=== PATIENT | male | born 1980 | race Caucasian/White ===

== ENCOUNTER 2016-06-05 18:06 | Emergency (ER) | payer OTHER ==
[2016-06-05] MEDS ORDERED: Sodium Chloride 0.9% 1,000 ML ONE (18:17)
[2016-06-05] MEDS ORDERED: MORPHINE SULFATE 4 MG/1 ML ONE ×2 (18:17)
[2016-06-05] MEDS ORDERED: ONDANSETRON 4 MG/2 ML VIAL ONE (18:17)
--- NOTE | 2016-06-05 18:31 | PDOC ---
Lower Extremity Injury HPI - General Chief Complaint: Lower Extremity Problem/Injury Stated Complaint: RIGHT KNEE INJURY Date Seen by Provider: 06/05/16 Time Seen by Provider: 18:25 Source: POSITIVE: Patient Exam Limitations: POSITIVE: No limitations Nurse's Notes Reviewed & Considered: Yes - History of Present Illness Initial Comments: Patient comes in today with chief complaint of right knee pain. Patient was at work at approximately 1700 hrs. when a 5 inch 15 foot long steel pipe fell striking him on the anterior proximal tibia driving him backwards to the ground. He was pinned under the pipe for a couple of minutes before it was able to be lifted free. He arrives sitting with his knee bent and being held in his hand he states he feels crepitus in his knee. He has good capillary refill distally denies any other injuries no headache, no nausea vomiting diarrhea, no chest pain shortness breath, no fever chills or sweats, no hematuria or dysuria. Have you received a tetanus shot in the past 10 years?: Unknown Body Location Affected: REPORTS: Lower Extremity (R) Timing: REPORTS: Abrupt Duration: 1 hour Severity: Severe Quality: REPORTS: "Pain", Sharpness, Stabbing, Throbbing Location at Time of Onset: REPORTS: Work Context of Injury: REPORTS: Direct Blow Location of Injury: REPORTS: Knee (R), Other Modifying Factors: improves with: Movement, Nothing Relieves Associated Symptoms: REPORTS: Unable to Bear Weight Any Prior Injuries Related to Current Complaint?: No - Patient Home Medications Home Medications: Home Medications NK [No Home Medications Reported] 06/05/16 - Patient Allergies Allergies/Adverse Reactions: Allergies Allergy/AdvReac Type Severity Reaction Status Date / Time No Known Allergies Allergy Verified 06/05/16 18:31 ROS - Limitations ROS Limitations: No Limitations Constitution: REPORTS: Denies Symptoms Cardiovascular: REPORTS: Denies Cardiac Symptoms Respiratory: REPORTS: Denies Resp Symptoms Neurological: REPORTS: Denies Neuro Symptoms Gastrointestinal: REPORTS: Denies GI Symptoms Endocrine: REPORTS: Denies Symptoms Musculoskeletal: REPORTS: Joint Pain (Right knee), Lower Extremity Swelling ( Swelling of the right knee with bruising, abrasion on his proximal right anterior tibial region.) Genitourinary: REPORTS: Denies Symptoms Eyes: REPORTS: Denies Symptoms ENT: REPORTS: Denies Symptoms Skin: REPORTS: Denies Skin Symptoms Lympathic: REPORTS: Denies Lympathic Symptoms Immunologic: POSITIVE: Denies Symptoms Lower Ext Complaint Exam - General Appearance General Appearance: POSITIVE: Alert, Cooperative, Moderate Distress - Extremities Lower Extremity: POSITIVE: Normal Color, Normal Temperature, Skin Intact, Soft Tissue Tenderness, Bony Tenderness, Swelling, Ecchymosis, Deformity, Limited ROM Lower Extremity Ligament: POSITIVE: Pain on Anterior Drawer, Pain on Posterior Drawer, Laxity on Anterior Drawer, Laxity w/Posterior Drawer, Pain on Medial Stress, Pain on Lateral Stress Gait: POSITIVE: Unable to Bear Weight Neurovascular/Tendon: POSITIVE: Sensation Normal, No Vascular Compromise Skin: POSITIVE: Warm, Dry, Ecchymosis, Abrasion - HEENT HEENT: POSITIVE: Head Inspection Nml, Eyes Inspection Nml, Ears Inspection Nml, Nose Inspection Nml, PERRL, EOMI - Neck / Back Neck/Back: POSITIVE: Normal Inspection, Non-Tender, Painless ROM - Respiratory / CVS Respiratory / CVS: POSITIVE: Chest Non Tender, No Ecchymosis, Breath Sounds Normal, No Respiratory Distress, Heart Sounds Normal, Regular Rate/Rhythm Peripheral Pulses: Dorsalis-pedis (R): 3+, Dorsalis-pedis (L): 3+ - Abdomen Abdomen: Soft: (All Quadrants), Normal Bowel Sounds: (All Quadrants), Denies Tenderness: (All Quadrants) Procedures - Laceration/Wound Repair Did patient have a laceration repair: No Lower Ext Complaint Progress - Results Reviewed by me Xrays/CTs/US Reviewed by me: Yes Discussed with Radiologist: Yes Lab Results Reviewed: Yes Lab Results:: Laboratory Results 06/05/16 Range/Units 18:15 WBC 10.70 (4.8-10.8) 10^3/uL RBC 4.77 (4.70-6.10) 10^6/uL Hgb 15.3 (14.0-18.0) g/dL Hct 41.7 L (42.0-52.0) % MCV 87.4 (80-90) FL MCH 32.1 H (27-31) PG MCHC 36.7 (33-37) g/dL RDW Std Deviation 40.7 (39-50) fL RDW Coeff of Leah 13.0 (11.5-14.5) % Plt Count 288 (140-350) 10*3/uL MPV 9.3 (7.4-12.2) FL Neutrophils % (Manual) 72 (50-80) % Band Neutrophils % 2 (0-10) % Lymphocytes % (Manual) 24 (10-50) % Monocytes % (Manual) 1 (0-12) % Eosinophils % (Manual) 1 (0-8) % Basophils % (Manual) 0 (0-1) % Metamyelocytes % Not Reportable Myelocytes % Not Reportable Promyelocytes % Not Reportable Blast Cells Not Reportable WBC Morphology Comment Normal morphology (NORM) Plt Morphology Comment Normal morphology (NORM) RBC Morph Comment Normal morphology (NORM) PT 11.4 (9.7-11.4) secs INR 1.10 (0.00-5.90) N/A Sodium 137 (135-145) meq/L Potassium 3.1 L (3.8-5.2) meq/L Chloride 100 (98-112) meq/L Carbon Dioxide 24 (23-33) meq/L Anion Gap 13 (5-20) BUN 26 H (7-22) mg/dL Creatinine 1.1 (0.70-1.50) mg/dL Estimated GFR > 60 (>60 ml/min/1.73m(2)) BUN/Creatinine Ratio 23.63 H (6-20) Glucose 80 (78-110) mg/dL Calculated Osmolality 287.0 (267-292) mOsm/kg Calcium 9.3 (8.7-10.7) mg/dL Total Bilirubin 1.2 (0.3-1.2) mg/dL AST 59 H (21-57) IU/L ALT 74 H (21-72) IU/L Alkaline Phosphatase 69 (38-126) IU/L Total Protein 7.2 (6.1-8.0) g/dL Albumin 4.7 (3.5-4.8) g/dL Globulin 2.5 (2.50-4.10) g/dL Albumin/Globulin Ratio 1.80 (1.3-2.0) mg/g - Patient's Progress Re-Examine Time:: 20:40 Status: POSITIVE: Improved MDM / ED Course: Patient was examined, an IV started, blood drawn and sent to the lab for studies , radiographic examinations obtained. She received IV morphine sulfate, ketamine, Zofran, Valium, and normal saline. His pain significantly improved and I was able to straighten his leg. He was then taken to the radiological suite for studies. CT scan was obtained of his knee which showed a tibial plateau fracture on the posterior medial portion. There is minimal displacement present. Next I was able to contact Dr. Melvin Sanchez with [facility] our transition advisor criminal intelligence specialist, who is recommending knee immobilizer, crutches, pain medication and follow-up with orthopedics. Assessment: Traumatic right tibial plateau fracture. Plan: Knee immobilizer, crutches, [place], follow-up with orthopedics tomorrow. - Consult Consult (If Yes, Name of Consulting MD & Time Called): Yes (Dr. Melvin Sanchez) Consulting MD will see pt:: POSITIVE: In Office Counseled: POSITIVE: Patient, RE: Lab Results, RE: Radiology Results, RE: DX, RE : Need for F/U Patient Care Time - Estimated PCT Patient Care Time (In Minutes): 45 Vital Signs - VS Reviewed Vital Signs Reviewed: Yes Discharge Clinical Impression: Tibial plateau fracture, right Discharge Disposition: Discharged to Home Condition: Stable Patient Instructions Given at Discharge: Leg Fracture (ED)
[2016-06-05] MEDS ORDERED: KETAMINE 100 MG/1 ML - 5 ML IV ONE (18:34)
[2016-06-05] MEDS ORDERED: ONDANSETRON 4 MG/2 ML VIAL IVP ONE (18:34)
[2016-06-05] MEDS ORDERED: DIPH,PERTUSS,TET(ADACEL) VAC/PF 0.5 ML (Tdap) IM ONE (18:34)
[2016-06-05] MEDS ORDERED: MORPHINE SULFATE 4 MG/1 ML IVP ONE (18:34)
[2016-06-05] MEDS ORDERED: Sodium Chloride 0.9% 1,000 ML PRIMARY IV ONE (18:34)
[2016-06-05 18:42] LABS: HEMATOCRIT 41.7 % (42.0-52.0); HEMOGLOBIN 15.3 g/dL (14.0-18.0); MEAN CORPUSCULAR HEMOGLOBIN 32.1 PG (27-31); MEAN CORPUSCULAR HGB CONC 36.7 g/dL (33-37); MEAN CORPUSCULAR VOLUME 87.4 FL (80-90); MEAN PLATELET VOLUME 9.3 FL (7.4-12.2); RED BLOOD COUNT 4.77 10^6/uL (4.70-6.10)
[2016-06-05 18:48] LABS: BLOOD UREA NITROGEN 26 mg/dL (7-22); BUN/CREATININE RATIO 23.63 (6-20); CALCIUM 9.3 mg/dL (8.7-10.7); EST GLOMERULAR FILTRATION > 60 (>60 ml/min/1.73m(2)); SERUM ALBUMIN 4.7 g/dL (3.5-4.8)
[2016-06-05 18:57] LABS: PLATELET MORPHOLOGY COMMENT NORMAL MORPHOLOGY (NORM); RBC MORPHOLOGY COMMENT NORMAL MORPHOLOGY (NORM); WBC MORPHOLOGY COMMENT NORMAL MORPHOLOGY (NORM)
[2016-06-05 18:58] LABS: BAND NEUTROPHILS % 2 % (0-10); BASOPHILS % (MANUAL) 0 % (0-1); EOSINOPHILS % (MANUAL) 1 % (0-8); LYMPHOCYTES % (MANUAL) 24 % (10-50); MONOCYTES % (MANUAL) 1 % (0-12); NEUTROPHILS % (MANUAL) 72 % (50-80)
[2016-06-05] MEDS ORDERED: HYDROcodone-APAP 5 MG -325 MG TABLET PO ONE (20:51)
[2016-06-05] MEDS ORDERED: HYDROcodone-APAP 5 MG -325 MG TABLET PO SCH (21:00)
[2016-06-06 06:39] VITALS: RESP 16; TEMP 99.1
== END 2016-06-05 21:25 | disposition home or self-care (01) ==
LOC: ER 18:06
DX: S82.141A Displaced bicondylar fracture of right tibia, initial encounter for closed fracture (principal); S80.01XA Contusion of right knee, initial encounter; S80.211A Abrasion, right knee, initial encounter; W20.8XXA Other cause of strike by thrown, projected or falling object, initial encounter; Y99.0 Civilian activity done for income or pay
CPT/HCPCS: 73700; 80053; 85007; 85610; 90471; 96361; 96374; 96375; 99282; 99283; J2270; J2405; J7030

== ENCOUNTER 2016-06-15 05:44 | Day surgery (SDC) | payer OTHER ==
[2016-06-15] MEDS ORDERED: ceFAZolin Inj 2gm (Premix) 50 ML IV ONE (05:59)
[2016-06-15] MEDS ORDERED: LIDOCAINE W/ SODIUM BICARB 0.5 ML SYR ONE (05:59)
[2016-06-15] MEDS ORDERED: Lactated Ringers 1,000 ML PRIMARY IV ONE (06:00)
[2016-06-15] MEDS ORDERED: MIDAZOLAM 5 MG/1 ML ONE (06:33)
[2016-06-15] MEDS ORDERED: BUPIVACAINE 0.5% W/EPI MPF -30 ML VIAL IV ONE (06:34)
[2016-06-15] MEDS ORDERED: DEXAMETHASONE PF 10 MG/1 ML VIAL ONE (06:34)
[2016-06-15] MEDS ORDERED: fentaNYL Inj 250 MCG/5 ML VIAL ONE (06:34)
[2016-06-15] MEDS ORDERED: MEPIVACAINE HCL/PF 20 MG/1 ML IV ONE (06:47)
[2016-06-15] MEDS ORDERED: DEXAMETHASONE SOD PHOSPHATE 4 MG/1 ML VIAL ONE (06:48)
[2016-06-15] MEDS ORDERED: KETAMINE 100 MG/1 ML - 5 ML ONE (08:30)
[2016-06-15] MEDS ORDERED: Lactated Ringers 2,000 ML PRIMARY IV ONE (08:37)
[2016-06-15] MEDS ORDERED: ENALAPRILAT DIHYDRATE 1.25 MG/1 ML VIAL ONE (08:46)
[2016-06-15] MEDS ORDERED: NORMAL SALINE 10 ML SYRINGE FLUSH IVP PRN ×2 (08:49→10:08)
[2016-06-15] MEDS ORDERED: Ondansetron ODT Tab 8 MG TAB PO PRN (08:49)
[2016-06-15] MEDS ORDERED: fentaNYL Inj 100 MCG/2 ML VIAL IVP PRN (08:49)
[2016-06-15] MEDS ORDERED: ONDANSETRON 4 MG/2 ML VIAL IVP PRN ×2 (08:49→10:08)
[2016-06-15] MEDS ORDERED: ATROPINE SULFATE 0.4 MG/1 ML VIAL IVP PRN (08:49)
--- NOTE | 2016-06-15 08:55 | CRNA.PROCE ---
Nerve Block Documentation - - Safety Measures: Time Out Taken, Site Verified - - Type of Nerve Block Used: Right Femoral Nerve Block (NOT FEMORAL NERVE BLOCK--- ADUCTOR CANAL BLOCK under ultrasound guidance) Position for Nerve Block: Supine Moniters Used During Block: EKG, SPO2, NIBP Oxygen Sumpplented: Yes Sedation Used - Enter Amount in Comment Field: Midazolam (mg): Yes (2), Fentanyl (mcg): Yes (100) Skin Prep Used: ChloroPrep (twice) Draped: No Technique: Ultrasound Nerve Block Needle Used: [employer] 50 mm Stimulation Hz: 1 Stimulation Staring mA: 1 Stimulation Ending mA: 0.5 Local Anesthetic - Enter Amt in Comment Field: 0.5 % Bupivicaine with Epinephrine 1:200,000 (mL): Yes (10 ml in 3 ml incrememnts), 2 % Mepivacaine (mL ): Yes (ml increments) Additives to Nerve Blocks: Dexamethasone (mL): Yes (10 mg)
[2016-06-15] MEDS ORDERED: Lactated Ringers 1,000 ML PRIMARY IV SCH (09:00)
[2016-06-15] MEDS ORDERED: HYDROmorphone 2 MG/1 ML ONE ×2 (09:08→10:31)
[2016-06-15] MEDS ORDERED: oxyCODONE-ACETAMINOPHEN 5-325 TAB PO PRN (10:08)
[2016-06-15] MEDS: HYDROmorphone 2 MG/1 ML IVP PRN ×3 (10:30→10:48)
[2016-06-15] MEDS ORDERED: KETOROLAC 30 MG/1 ML VIAL IVP ONE (10:59)
[2016-06-15] MEDS ORDERED: KETOROLAC 30 MG/1 ML VIAL ONE (11:02)
[2016-06-15] MEDS ORDERED: oxyCODONE-ACETAMINOPHEN 5-325 TAB PO ONE (11:30)
[2016-06-15] MEDS ORDERED: ASPIRIN 325 MG TABLET PO ONE (11:41)
[2016-06-15 13:32] VITALS: TEMP 97.7
[2016-06-15 13:34] VITALS: RESP 16
[2016-06-16] MEDS ORDERED: ASPIRIN 325 MG EC TABLET PO SCH (09:00)
== END 2016-06-15 13:15 | disposition home or self-care (01) ==
LOC: SDSC 05:44 → EDSTATUS 07:30 → SDSC 13:15
PROVIDERS: ATTEND Orthopaedic Surgery Sports Medicine
DX: S82.141A Displaced bicondylar fracture of right tibia, initial encounter for closed fracture (principal)
CPT/HCPCS: 27535; 29876; 76001; J0690; J1885; J2704; J3010; S0020; J0670; J1100; J1170; J2250; J7120